=== PATIENT | female | born 1950 | race Caucasian/White ===

== ENCOUNTER 2017-09-29 11:19 | Emergency (ER) | payer OTHER ==
[2017-09-29] MEDS ORDERED: NS 0.9% 1000 ML* 1,000 ML IV ONE (13:17)
[2017-09-29] MEDS ORDERED: Ondansetron INJ* 2 MG/ML VIAL IV ONE (13:17)
--- NOTE | 2017-09-29 13:24 | UC ---
UC General HPI - HPI Summary HPI Summary: Valerio has had nausea and diarrhea for the past 48 hours, her grandkids that she is living with also had this but they seem to be getting better. she complains of diffuse cramping that comes and goes, denies any fever or nausea, no GI history. states that the diarrhea is liquid, food is running right though her. has not been drinking well it makes her nauseated - History of Current Complaint Chief Complaint: UCGI Stated Complaint: STOMACH ACHE/DIARRHEA Time Seen by Provider: 09/29/17 12:55 Hx Obtained From: Patient Onset/Duration: Sudden Onset, Lasting Days Timing: Constant Onset Severity: Moderate Current Severity: Moderate Pain Intensity: 5 Associated Signs & Symptoms: Positive: Diarrhea, Nausea - Allergy/Home Medications Allergies/Adverse Reactions: Allergies Allergy/AdvReac Type Severity Reaction Status Date / Time No Known Allergies Allergy Verified 09/29/17 13:01 Home Medications: Home Medications Aspirin 81 mg CHEW TAB* [Aspirin Low Dose TAB*] 81 mg PO DAILY 09/29/17 [ History Confirmed 09/29/17] Loratadine 10 mg PO DAILY 09/29/17 [History Confirmed 09/29/17] PMH/Surg Hx/FS Hx/Imm Hx Previously Healthy: Yes - Surgical History Surgical History: Yes Surgery Procedure, Year, and Place: c-sect in 1980. skin grafting in 1969 - Social History Alcohol Use: Occasionally Substance Use Type: None Smoking Status (MU): Former Smoker Review of Systems Constitutional: Negative Skin: Negative Eyes: Negative ENT: Negative Respiratory: Negative Cardiovascular: Negative Gastrointestinal: Vomiting, Diarrhea, Nausea Genitourinary: Negative Motor: Negative Neurovascular: Negative Musculoskeletal: Negative Neurological: Negative Psychological: Negative Is Patient Immunocompromised?: No All Other Systems Reviewed And Are Negative: Yes Physical Exam Triage Information Reviewed: Yes Appearance: Well-Nourished, Ill-Appearing, Pain Distress Vital Signs: Initial Vital Signs Temp 97.9 F 09/29/17 12:55 Pulse 82 09/29/17 12:55 Resp 20 09/29/17 12:55 BP 125/51 09/29/17 12:55 Pulse Ox 96 09/29/17 12:55 Vital Signs Reviewed: Yes Eye Exam: Normal ENT Exam: Normal Dental Exam: Normal Neck exam: Normal Respiratory Exam: Normal Respiratory: Positive: Chest non-tender, Lungs clear, Normal breath sounds Cardiovascular Exam: Normal Cardiovascular: Positive: RRR, No Murmur, Pulses Normal Abdomen Description: Positive: Nontender - mild lower abdominal tenderness with palpation, Soft, CVA Tenderness (R) - neg, CVA Tenderness (L) - neg, Distended - feels bloated Bowel Sounds: Positive: Hyperactive Musculoskeletal Exam: Normal Neurological Exam: Normal Psychological Exam: Normal Skin Exam: Normal Re-Evaluation - Re-Evaluation First Eval Re-Evaluation Time: 14:17 Change: Improved - less dizzy Course/Dx - Course Course Of Treatment: hx obtained, exam performed ,meds reviewed IV hydration and zofran iven, UA obtained, - Differential Dx - Multi-Symptom Provider Diagnoses: gastroenteritis. UTI Discharge - Sign-Out/Discharge Documenting (check all that apply): Discharge - Discharge Plan Condition: Stable Disposition: HOME Prescriptions: Cephalexin CAP* [Keflex CAP*] 500 mg PO BID #14 cap Lactobacillus Acidophilus* 1 cap PO BID #60 cap Ondansetron ODT TAB* [Zofran 4 MG Odt TAB*] 4 mg PO Q8H PRN #12 tab.odt PRN Reason: Nausea Patient Education Materials: Gastroenteritis (ED) Referrals: Albina Wahl MD [Primary Care Provider] - Additional Instructions: 1. Start taking the Lactobacillus twice a day 2. Stow diet, bread, rice bananas, apple sauce starting tomorrow. today clear fluids 3. REst 4Satert the antibiotic if you start developing urinary symptoms, a culture was sent due to Bacteria in your urine. - Billing Disposition and Condition Condition: STABLE Disposition: HOME
[2017-09-29 14:54] VITALS: BP 138/73
== END 2017-09-29 14:55 | disposition home or self-care (01) ==
LOC: UCCORT 11:19
DX: K52.9 Noninfective gastroenteritis and colitis, unspecified (principal); N39.0 Urinary tract infection, site not specified; Z87.891 Personal history of nicotine dependence
CPT/HCPCS: 81003; 87077; 87086; 87186; 96360; 96374; 99212; G0463; J2405